=== PATIENT | male | born 1970 | race Caucasian/White ===

== ENCOUNTER 2020-05-19 17:40 | Emergency (ER) | payer OTHER ==
[2020-05-19 18:51] LABS: HEMOGLOBIN 16.6 gm/dl (14.0-17.5); RED BLOOD COUNT 5.48 M/UL (4.20-5.50); WHITE BLOOD COUNT 4.1 K/UL (4.5-11.0)
[2020-05-19 19:09] LABS: BUN/CREATININE RATIO 12 (0-10)
[2020-05-19] MEDS ORDERED: ZITHROMAX500 MG PO (20:11)
[2020-05-19] MEDS ORDERED: PROVENTIL HFA6.7 GM INH (20:11)
== END 2020-05-19 20:30 | disposition home or self-care (01) ==
LOC: ER1 17:40
PROVIDERS: Physician Assistant
DX: U07.1 COVID-19 (principal); E87.6 Hypokalemia; I10 Essential (primary) hypertension
CPT/HCPCS: 71045; 80053; 82550; 82553; 84484; 85025; 96374; 99285; J1100; U0002